=== PATIENT | male | born 1995 | race Caucasian/White ===

== ENCOUNTER 2016-06-08 08:45 | Emergency (ER) | payer MEDICAID, OTHER ==
[~2016-06-08] VITALS: Ht 175.3 cm; Wt 85.0 kg
[2016-06-08 09:14] VITALS: BP 131/72; PULSE 89; RESP 18; TEMP 97.8; O2SAT 99
--- NOTE | 2016-06-08 14:31 | PD ---
History of Present Illness Chief Complaint: Psychiatric Symptoms Time Seen by Provider: 14:00 Travel History International Travel<30 Days: No Contact w/Intl Traveler<30days: No Known affected area: No Legal Status Legal Status: Peoples Act Peoples Act Signed By: History of Present Illness: 21-year-old male who reportedly put a belt around his neck yesterday in a suicide attempt. The patient explains that he became markedly distraught when his girlfriend left the home for several hours and would not answer her phone. Patient states that he blew up her phone and called and text of her "60 times". He admits his anxiety got the better of him and this is why he attempted to strangle himself with a belt. At this time the patient is calm and pleasant and cooperative. He denies any suicidal or homicidal ideation, plan or intention. He states he has been with his girlfriend for the last 4 years and they have a child together. They live together. The patient does have financial difficulties supporting them. However, he adamantly denies being suicidal at this time. He is competent and verbally contracts for safety. [facility] Past Medical History Medical History: Denies Significant Hx Past Surgical History Surgical History: No Previous Surgery Psychiatric History Psychiatric History Hx Psychiatric Treatment: Denies History of Inpatient Treatment: No Guns or firearms in home: No Social History Hx Alcohol Use: Yes (socially) Hx Tobacco Use: Yes (socially) Hx Substance Use: Yes (occasional marijuana use) Substance Use Type: Alcohol Hx of Substance Use Treatment: No Allergies-Medications Reported Meds & Prescriptions Reported Meds & Active Scripts Active No Active Prescriptions or Reported Medications Review of Systems ROS Limitations: Clinical Condition Exam Exam Limitations: Clinical Condition Alert: Yes [place]: Person, Place, Date, Situation Mood: Calm Affect: Appropriate Speech: Clear Eye Contact: Normal Memory Intact: Immediate, Recent, Remote, Comment Insight/Judgement Adequate. MDM Medical Decision Making Medical Record Reviewed: Yes Assessment/Plan At this time, the patient no longer meets Peoples act criteria and he no longer meets inpatient psychiatric hospitalization criteria. He is calm and pleasant and cooperative. His cognition is intact and he is verbally sathish for safety. He demonstrates no suicidal or homicidal ideation, plan or intention. No psychotic symptoms. Results Vital Signs Date Time Temp Pulse Resp B/P Pulse Ox O2 Delivery O2 Flow Rate FiO2 06/08/16 09:17 18 06/08/16 09:14 97.8 89 18 131/72 99 Diagnosis Primary Impression: Adjustment disorder with mixed disturbance of emotions and conduct Departure Forms: Tests/Procedures Patient Instructions: General Instructions, Suicide Prevention for Adults (ED) Prescriptions No Active Prescriptions or Reported Meds Denilson Manrique MD Jun 08, 2016 14:31
--- NOTE | 2016-06-08 15:30 | PD ---
HPI Chief Complaint: Psychiatric Symptoms Time Seen by Provider: 09:30 Travel History International Travel<30 days: No Contact w/Intl Traveler<30days: No Traveled to known affect area: No History of Present Illness HPI 21-year-old male here as a Peoples acted for psychiatric evaluation. Patient overnight attempted to strangle himself, wrapped a belt around his neck, other and on a banister and then leaned off. He did not jump. Patient was seen at outside hospital where he had CT head, CTA head, CTA neck, extensive laboratory and EKG workup that were all unremarkable and reviewed by myself for documentation sent with patient. Patient was under Peoples act and sent here for psychiatric evaluation. Patient feels remorseful at this time, states that he did this because his significant other recently broke up with him. He denies any complaints. PFSH Past Medical History Medical History: Denies Significant Hx Past Surgical History Surgical History: No Previous Surgery Social History Alcohol Use: Yes (socially) Tobacco Use: Yes (socially) Substance Use: Yes (occasional marijuana use) Allergies-Medications Reported Meds & Prescriptions Reported Meds & Active Scripts Active No Active Prescriptions or Reported Medications Review of Systems Except as stated in HPI: all other systems reviewed are Neg Physical Exam Narrative GENERAL: Well-appearing male in no acute distress SKIN: Focused skin assessment warm/dry. Slight amount of ecchymosis and ligature dodge around the neck HEAD: Normocephalic. EYES: Pupils equal and round. No scleral icterus. No injection or drainage. ENT: No nasal bleeding or discharge. Mucous membranes pink and moist. NECK: Supple without stridor, swelling, ecchymosis noted about CARDIOVASCULAR: Regular rate and rhythm. RESPIRATORY: No accessory muscle use. GASTROINTESTINAL: Abdomen soft, non-tender, nondistended. MUSCULOSKELETAL: Normal gait NEUROLOGICAL: Awake and alert. Motor grossly within normal limits. Normal speech. PSYCHIATRIC: Depressed mood and affect, poor insight and judgment. Denies any suicidal ideation ongoing Data Data Last Documented VS Vital Signs Date Time Temp Pulse Resp B/P Pulse Ox O2 Delivery O2 Flow Rate FiO2 06/08/16 09:17 18 06/08/16 09:14 97.8 89 131/72 99 MDM Medical Decision Making Medical Screen Exam Complete: Yes Emergency Medical Condition: Yes Medical Record Reviewed: Yes Differential Diagnosis 21-year-old male here as a Peoples act after suicide attempt by hanging himself. Differential includes adjustment reaction, substance induced mood disorder, depression, suicidal ideation. Narrative Course As previously stated extensive laboratory and imaging workup performed prior to my evaluation at outside hospital. Patient denies any medical complaints and was cleared for psychiatric evaluation. Diagnosis Primary Impression: Adjustment disorder with mixed disturbance of emotions and conduct Patient Instructions: General Instructions, Suicide Prevention for Adults (ED) Departure Forms: Tests/Procedures Scripts No Active Prescriptions or Reported Meds Disposition: 01 DISCHARGE HOME Condition: Stable Laine Pandya MD Jun 08, 2016 15:30
== END 2016-06-08 14:49 | disposition home or self-care (01) ==
LOC: NEPE 08:45 → NEPB 14:49
DX: F43.25 Adjustment disorder with mixed disturbance of emotions and conduct (principal); Z72.0 Tobacco use
CPT/HCPCS: 99284